=== PATIENT | female | born 1955 | race Caucasian/White ===

== ENCOUNTER 2021-04-28 09:33 | Outpatient (CLI) | payer MEDICARE ==
[~2021-04-28] VITALS: Ht 157.5 cm; Wt 46.0 kg
[2021-04-28] MEDS ORDERED: ONDANSETRON 4 MG/2 ML (SDV) Z0FRAN IV PRN (09:45)
[2021-04-28] MEDS ORDERED: diphenhydrAMINE 50 MG/ML INJ (BENADRYL) IV PRN (09:45)
[2021-04-28] MEDS ORDERED: CASIRIVIMAB/IMDEVIMAB 1,200 MG in NS (IVPB) 250 ML IV ONE (09:45)
[2021-04-28] MEDS ORDERED: ACETAMINOPHEN 500 MG TAB (TYLENOL) PO PRN (09:45)
[2021-04-28] MEDS ORDERED: EPINEPHrine INJECTION 1 MG/ML AMP IM PRN (09:45)
[2021-04-28 09:48] VITALS: BP 124/35
[2021-04-28 11:05] VITALS: BP 112/42
== END 2021-04-28 11:15 | disposition home or self-care (01) ==
LOC: INFUSION 09:33
PROVIDERS: ATTEND Nurse Practitioner Family
DX: U07.1 COVID-19 (principal)